=== PATIENT | female | born 1995 | race Caucasian/White ===

== ENCOUNTER 2017-12-09 09:28 | Emergency (ER) | payer SELFPAY ==
[~2017-12-09] VITALS: Ht 160 cm; Wt 122.5 kg
[~2017-12-09 09:28] MED LIST: CIPRO500 MG PO
== END 2017-12-09 11:10 | disposition home or self-care (01) ==
LOC: ER 09:28
DX: H60.93 Unspecified otitis externa, bilateral (principal)
CPT/HCPCS: 99283

== ENCOUNTER 2018-06-03 16:24 | Emergency (ER) | payer OTHER ==
[~2018-06-03] VITALS: Ht 160 cm; Wt 117.9 kg
[2018-06-03] MEDS ORDERED: SODIUM CHLORIDE 0.9% 1000ML 1,000 ML IV STA (16:55)
--- NOTE | 2018-06-03 18:34 | Diagnostic Imaging Report ---
EXAM: Obstetric Pelvic Ultrasound INDICATION: ^trauma, 13 wk IUP COMPARISON: None TECHNIQUE: Transabdominal and transvaginal evaluation of the pelvis was performed in the transverse and longitudinal planes. CLINICAL HISTORY: 23 year old ; last menstrual period: 03/2018 FINDINGS: Uterus: Orientation: Normal Size: 12.4 x 7.9 x 8.8 cm, gravid Mass: None Cervix: Normal Gestational Sac: Location: Intrauterine Average sac diameter: 5.5 cm Estimated sonographic GA: 12 weeks, 1 day Appearance: Normal in contour Subchorionic hemorrhage: None Embryo/Fetus: [place] rump length: 6.76 cm Estimated sonographic GA: 13 weeks, 0 days Cardiac activity: 162 bpm Placenta is posterior Right ovary Size: 3.1 x 1.9 x 2.7 cm Mass/Cyst: None Left ovary Size: 2.7 x 1.4 x 2.1 cm Mass/Cyst: None Cul-de-sac: No free fluid IMPRESSION: Viable single intrauterine with estimated gestational age of 13 weeks, 0 days by CRL and documented heart rate of 162 BPM. Signed by: Dr. Tam Garvin M.D. on 06/03/2018 6:31 PM
[2018-06-03 19:05] LABS: BASOPHILS # (AUTO) 0.1 (0.0-0.1); BASOPHILS % 0.5 % (0.0-1.0); EOSINOPHILS # (AUTO) 0.1 (0.0-0.4); EOSINOPHILS % 1.5 % (0.0-6.0); HEMATOCRIT 37.9 % (34.2-44.1); HEMOGLOBIN 12.7 g/dL (12.0-16.0); LYMPHOCYTES # (AUTO) 1.8 (1.0-3.2); LYMPHOCYTES % 19.1 % (18.0-39.1); MEAN CORPUSCULAR HGB CONC 33.5 g/dL (31-35); MEAN CORPUSCULAR VOLUME 86.5 fL (81-99); MONOCYTES # (AUTO) 0.5 (0.2-0.8); MONOCYTES % 5.5 % (4.4-11.3); NEUTROPHILS % 73.1 % (38.7-80.0); PLATELET COUNT 204 x10e3/uL (140-360); RED BLOOD COUNT 4.38 x10e6/uL (3.6-5.1); RED CELL DISTRIBUTION WIDTH 13.8 % (11.7-14.4)
[2018-06-03 19:25] LABS: ALANINE AMINOTRANSFERASE 11 IU/L (0-55); ALBUMIN 3.5 g/dL (3.5-5.0); ALBUMIN/GLOBULIN RATIO 0.8 (0.8-2.0); ALKALINE PHOSPHATASE 54 IU/L (40-150); ANION GAP 13.5 mmol/L (8-16); BLOOD UREA NITROGEN 5 mg/dL (7-26); BUN/CREATININE RATIO 8 (6-25); CARBON DIOXIDE 22 mmol/L (22-29); CHLORIDE 105 mmol/L (98-107); CREATININE, SERUM 0.61 mg/dL (0.57-1.11); EST GLOMERULAR FILTRATION RATE > 60 ML/MIN (60-); GLUCOSE 84 mg/dL (74-118); POTASSIUM 3.5 mmol/L (3.5-5.1); SODIUM 137 mmol/L (136-145)
[2018-06-03 20:26] VITALS: BP 114/100
[2018-06-03] MEDS ORDERED: LORAZEPAM INJ 2 MG/ML VIAL IV ONE (20:30)
== END 2018-06-03 20:28 | disposition home or self-care (01) ==
LOC: ER 16:24
DX: Z34.81 Encounter for supervision of other normal pregnancy, first trimester (principal); W01.190A Fall on same level from slipping, tripping and stumbling with subsequent striking against furniture, initial encounter; Y92.009 Unspecified place in unspecified non-institutional (private) residence as the place of occurrence of the external cause
CPT/HCPCS: 36415; 76805; 80053; 85025; 99283; J7030

== ENCOUNTER 2018-12-02 20:30 | Emergency (ER) | payer OTHER ==
[~2018-12-02] VITALS: Ht 160 cm; Wt 123.8 kg
== END 2018-12-02 21:40 | disposition left against medical advice (07) ==
LOC: ER 20:30
DX: H92.03 Otalgia, bilateral (principal)

== ENCOUNTER 2018-12-08 02:18 | Emergency (ER) | payer OTHER ==
[~2018-12-08] VITALS: Ht 160 cm; Wt 123.8 kg
[2018-12-08 03:51] LABS: CLARITY,URINE CLEAR (CLEAR); COLOR,URINE YELLOW (YELLOW); LEUKOCYTE ESTERASE ,URINE NEGATIVE (NEGATIVE)
[2018-12-08 03:52] LABS: ANION GAP 13.5 mmol/L (8-16); BLOOD UREA NITROGEN 8 mg/dL (7-26); BUN/CREATININE RATIO 12 (6-25); CALCIUM 9.9 mg/dL (8.4-10.2); CARBON DIOXIDE 23 mmol/L (22-29); CHLORIDE 106 mmol/L (98-107); CREATININE, SERUM 0.67 mg/dL (0.57-1.11); EST GLOMERULAR FILTRATION RATE > 60 ML/MIN (60-); GLUCOSE 82 mg/dL (74-118); POTASSIUM 3.5 mmol/L (3.5-5.1); SODIUM 139 mmol/L (136-145)
[2018-12-08 03:52] LABS: BILIRUBIN,URINE NEGATIVE (NEGATIVE); KETONES,URINE NEGATIVE (NEGATIVE); NITRITE,URINE NEGATIVE (NEGATIVE); PROTEIN,URINE DIPSTICK NEGATIVE (NEGATIVE); URINE UROBILINOGEN 0.2 mg/dL (0.2 - 1)
[2018-12-08 04:02] LABS: BACTERIA,URINE FEW /HPF; EPITHELIAL CELLS,URINE FEW /LPF; RBC,URINE 0-5 /HPF (0-5); WBC,URINE (MAN) 0-5 /HPF (0-5)
[2018-12-08 04:10] VITALS: BP 134/72
== END 2018-12-08 04:20 | disposition home or self-care (01) ==
LOC: ER 02:18
DX: R60.0 Localized edema (principal)
CPT/HCPCS: 36415; 80048; 81001; 99283

== ENCOUNTER 2024-02-15 02:48 | Emergency (ER) | payer SELFPAY ==
[~2024-02-15] VITALS: Ht 160 cm; Wt 127.0 kg
[~2024-02-15 02:48] MED LIST changes: +DICYCLOMINE HCL20 MG PO; +FLOMAX0.4 MG PO; +KETOROLAC TROME10 MG PO; +MACROBID 100 M100 MG PO; +NAPROXEN250 MG PO; +ONDANSETRON ODT4 MG SL; +PANTOPRAZOLE SO40 MG PO
[2024-02-15 02:53] VITALS: PULSE 91; RESP 16; TEMP 98.5
[2024-02-15] MEDS: FAMOTIDINE 20 MG/2 ML VIAL IV STA (03:17)
[2024-02-15] MEDS: ONDANSETRON HCL INJ 2MG/ML 2ML 2 MG/ML VIAL IV STA ×2 (03:17→05:03)
[2024-02-15 03:19] LABS: BASOPHILS # (AUTO) 0.1 (0.0-0.1); BASOPHILS % 0.5 % (0.0-1.0); EOSINOPHILS # (AUTO) 0.2 (0.0-0.4); EOSINOPHILS % 1.8 % (0.0-6.0); HEMATOCRIT 36.2 % (34.2-44.1); HEMOGLOBIN 11.6 g/dL (12.0-16.0); LYMPHOCYTES # (AUTO) 3.3 (1.0-3.2); LYMPHOCYTES % 28.9 % (18.0-39.1); MEAN CORPUSCULAR HEMOGLOBIN 28.5 pg (28-32); MEAN CORPUSCULAR VOLUME 88.9 fL (81-99); MONOCYTES # (AUTO) 0.6 (0.2-0.8); MONOCYTES % 4.9 % (4.4-11.3); NEUTROPHILS # (AUTO) 7.3 (2.1-6.9); NEUTROPHILS % 63.6 % (38.7-80.0); PLATELET COUNT 241 x10e3/uL (140-360); RED BLOOD COUNT 4.07 x10e6/uL (3.6-5.1); WHITE BLOOD COUNT 11.43 x10e3/uL (4.8-10.8)
[2024-02-15 03:31] LABS: AMPHETAMINES SCREEN,URINE NEGATIVE (NEGATIVE); BENZODIAZEPINES SCREEN,URINE NEGATIVE (NEGATIVE); CANNABINOIDS SCREEN,URINE NEGATIVE (NEGATIVE); METHADONE SCREEN, URINE NEGATIVE (NEGATIVE); OPIATES SCREEN,URINE NEGATIVE (NEGATIVE); PHENCYCLIDINE SCREEN,URINE NEGATIVE (NEGATIVE); PREGNANCY TEST, URINE NEGATIVE (NEGATIVE)
[2024-02-15 03:35] LABS: ALANINE AMINOTRANSFERASE 11 IU/L (0-55); ALBUMIN 3.9 g/dL (3.5-5.0); ALKALINE PHOSPHATASE 60 IU/L (40-150); ANION GAP 14.5 mmol/L (8-16); BILIRUBIN,TOTAL 0.3 mg/dL (0.2-1.2); BLOOD UREA NITROGEN 9 mg/dL (7-26); BUN/CREATININE RATIO 13 (6-25); CALCIUM 9.2 mg/dL (8.4-10.2); CARBON DIOXIDE 20 mmol/L (22-29); CHLORIDE 109 mmol/L (98-107); CREATINE KINASE 65 IU/L (29-168); CREATININE, SERUM 0.71 mg/dL (0.57-1.11); EST GLOMERULAR FILTRATION RATE 119 ML/MIN (>=60); GLUCOSE 88 mg/dL (74-118); POTASSIUM 3.5 mmol/L (3.5-5.1); SODIUM 140 mmol/L (136-145); TOTAL PROTEIN 7.9 g/dL (6.5-8.1)
[2024-02-15 03:47] LABS: TROPONIN I < 0.001 ng/mL (0-0.300)
[2024-02-15] MEDS ORDERED: IOPAMIDOL 370 MG/ML 100 ML INFUS..BTL INJ ONE (04:00)
[2024-02-15] MEDS: Morphine 4mg INJECTION 4 MG/ML INJ IV STA (05:02)
[2024-02-15] MEDS ORDERED: PROTONIX40 MG PO (05:20)
[2024-02-15] MEDS ORDERED: ONDANSETRON ODT4 MG PO (05:20)
[2024-02-15 06:45] VITALS: BP 111/72; O2SAT 100
== END 2024-02-15 06:10 | disposition home or self-care (01) ==
LOC: ER 02:53
DX: R10.13 Epigastric pain (principal); K80.20 Calculus of gallbladder without cholecystitis without obstruction; R11.0 Nausea; R94.31 Abnormal electrocardiogram [ECG] [EKG]
CPT/HCPCS: 36415; 71045; 74177; 80053; 80307; 81025; 82550; 83690; 83880; 84484; 85025; 85379; 93005; 99284; J2270; J2405; Q9967

== ENCOUNTER 2024-04-21 14:52 | Emergency (ER) | payer SELFPAY ==
[~2024-04-21] VITALS: Ht 160 cm; Wt 127.0 kg
[~2024-04-21 14:52] MED LIST changes: +ONDANSETRON ODT4 MG PO; +PROTONIX40 MG PO
[2024-04-21] MEDS ORDERED: ONDANSETRON HCL INJ 2MG/ML 2ML 2 MG/ML VIAL IV STA (15:24)
[2024-04-21] MEDS ORDERED: KETOROLAC TROMETHAMINE 30 MG/ML VIAL IV STA (15:24)
[2024-04-21] MEDS ORDERED: SODIUM CHLORIDE 0.9% 1000ML 1,000 ML IV ONE (15:30)
[2024-04-21 15:55] VITALS: PULSE 87; RESP 18; TEMP 98.4
[2024-04-21 16:26] LABS: BILIRUBIN,URINE NEGATIVE (NEGATIVE); CLARITY,URINE HAZY (CLEAR); COLOR,URINE YELLOW (YELLOW); GLUCOSE, URINE NEGATIVE (NEGATIVE); KETONES,URINE NEGATIVE (NEGATIVE); LEUKOCYTE ESTERASE ,URINE TRACE (NEGATIVE); NITRITE,URINE NEGATIVE (NEGATIVE); PH,URINE 5.5 (5 - 7); PREGNANCY TEST, URINE NEGATIVE (NEGATIVE); PROTEIN,URINE DIPSTICK NEGATIVE (NEGATIVE); URINE UROBILINOGEN 0.2 mg/dL (0.2 - 1)
[2024-04-21 16:28] LABS: BACTERIA,URINE MANY /HPF; EPITHELIAL CELLS,URINE MANY /LPF; RBC,URINE 0-5 /HPF (0-5)
[2024-04-21] MEDS: CYCLOBENZAPRINE HCL 10 MG TAB PO ONE (16:44)
[2024-04-21] MEDS: KETOROLAC TROMETHAMINE 60 MG/2 ML VIAL IM ONE (16:45)
[2024-04-21] MEDS ORDERED: CYCLOBENZAPRINE10 MG PO (17:01)
[2024-04-21 17:45] VITALS: BP 118/79; PULSE 75; RESP 17; O2SAT 100
== END 2024-04-21 17:47 | disposition home or self-care (01) ==
LOC: ER 15:25
DX: M54.50 Low back pain, unspecified (principal); M79.18 Myalgia, other site; R10.12 Left upper quadrant pain
CPT/HCPCS: 81001; 81025; 99282; J1885

== ENCOUNTER 2024-08-15 23:07 | Emergency (ER) | payer SELFPAY ==
[~2024-08-15] VITALS: Ht 160 cm; Wt 127.0 kg
[~2024-08-15 23:07] MED LIST changes: +CYCLOBENZAPRINE10 MG PO
[2024-08-15 23:21] VITALS: PULSE 101; RESP 20; TEMP 98.6; O2SAT 100
[2024-08-16] MEDS ORDERED: CORTISPORIN-TC10 M1 LEFT EAR (00:08)
== END 2024-08-16 00:16 | disposition home or self-care (01) ==
LOC: ER 08-16 00:08
DX: H60.92 Unspecified otitis externa, left ear (principal); R05.9 Cough, unspecified
CPT/HCPCS: 99282